=== PATIENT | female | born 2000 | race Caucasian/White ===

== ENCOUNTER 2020-03-22 07:14 | Inpatient (IN) | payer BC, OTHER ==
[~2020-03-22] VITALS: Ht 160 cm; Wt 65.8 kg
[~2020-03-22 07:14] MED LIST: CLIN150C14 PO; HYDR15SO6 PO
[2020-03-22] MEDS ORDERED: IV NORMAL SALINE 1000ML BAG 1,000 ML IV ONE ×2 (07:45)
[2020-03-22] MEDS ORDERED: ONDANSETRON PF 4 MG/2 ML VIAL. IVP ONE (07:45)
[2020-03-22 07:57] LABS: HEMATOCRIT 38.1 % (36.0-47.0); HEMOGLOBIN 13.1 g/dL (12.0-15.5); WHITE BLOOD COUNT 15.7 x10^3/uL (4.0-11.0)
[2020-03-22 08:04] LABS: BILIRUBIN,URINE SMALL (NEG); CLARITY,URINE CLEAR; COLOR,URINE AMBER; NITRITE,URINE NEGATIVE (NEG); PH,URINE 6.5 (<5.0-8.0); PROTEIN,URINE 30 mg/dL (NEG-TRACE)
[2020-03-22 08:11] LABS: CALCIUM 8.6 mg/dL (8.5-10.1); CREATININE 0.7 mg/dL (0.6-1.0); GFR 107.8; POTASSIUM 3.7 mmol/L (3.5-5.1)
[2020-03-22 08:13] LABS: BACTERIA,URINE FEW /HPF (0-FEW); RBC,URINE 0 /HPF (0-2); SQUAMOUS EPITHELIAL CELL,UR MANY /LPF
[2020-03-22 08:17] LABS: ALBUMIN 3.3 g/dL (3.4-5.0); ALBUMIN/GLOBULIN RATIO 0.9 (1.0-1.7); TOTAL BILIRUBIN 0.8 mg/dL (0.2-1.0); TOTAL PROTEIN 6.9 g/dL (6.4-8.2)
[2020-03-22 08:23] LABS: PREG TEST PT QUAL NEGATIVE (NEG)
[2020-03-22] MEDS ORDERED: FAMOTIDINE 20 MG/2 ML VIAL IVP ONE (08:30)
[2020-03-22] MEDS ORDERED: KETOROLAC 15 MG/ML VIAL. IVP ONE (08:30)
[2020-03-22] MEDS ORDERED: IOHEXOL 300 MG/ML 100ML VIAL. IV ONE (09:30)
--- NOTE | 2020-03-22 09:55 | RAD ---
CT abdomen and pelvis with contrast PQRS statement: CT scans at this facility use dose reduction including either automated exposure control, iterative reconstructions, and /or weight based radiation dosing via mA and kV modification when appropriate to reduce radiation dose to as low as reasonably achievable. Contrast: 75 mL Omnipaque 300 intravenous contrast. HISTORY: Abdominal pain, fever, nausea and vomiting. Abdomen findings: There are heterogeneous groundglass opacities at the lung bases. Kidneys, adrenal glands, pancreas, spleen, liver and gallbladder are unremarkable. Appendix is negative. No obstruction or inflammation the GI tract. No abdominal fluid or adenopathy. Right inner breast 3 x 2 cm ovoid density measuring 40 units in density image 1 extending outside the [id number] raising the possibility of a mass. Bones are unremarkable. Pelvis findings: Indistinct ovarian hypodensity most likely follicles. No pelvic fluid or adenopathy. Uterus, bladder, rectum and bones are unremarkable. IMPRESSION: 1. Heterogeneous pulmonary opacities of the lung bases, this raises the possibility of an inflammatory or infectious process including atypical viral infections. 2. 3 x 2 cm ovoid soft tissue density mass of the right inner breast extending outside the [id number]. Consider further assessment with outpatient right breast ultrasound. 3. Appendix is negative. Electronically signed by: Deepak Celaya MD (03/22/2020 9:52 AM) [id number]
--- NOTE | 2020-03-22 10:37 | PHYS DOC ---
Past Medical History Past Medical History: Asthma Additional Past Medical Histor: reports concussion july 2019 Past Surgical History: No Surgical History Smoking Status: Never Smoker Alcohol Use: None Drug Use: None Adult General Chief Complaint Chief Complaint: NAUSEA/VOMITING/DIARRHA HPI HPI Patient is a 19 year old female who presents with multiple medical complaints. Patient reports subjective fever, nausea vomiting and diarrhea for the past 5 days with left upper quadrant sharp abdominal pain worse with deep breathing. Patient reports body aches chills and sweats. Denies hematemesis coffee-ground emesis, melena. Reports feeling dizzy due to decreased oral intake. Last menstrual period was the past 30 days. No prior abdominal surgeries. No other acute symptoms or complaints. [] Review of Systems Review of Systems No known sick exposures. Review of systems as per HPI. All other review of symptoms are negative. All other systems were reviewed and found to be within normal limits, except as documented in this note. Current Medications Current Medications Current Medications Medications (Trade) Dose Ordered Sig/Michael Start Time Stop Time Status Last Admin Dose Admin Famotidine (Pepcid Vial) 20 mg 1X ONCE 03/22/20 08:30 03/22/20 08:33 DC 03/22/20 08:39 20 MG Iohexol (Omnipaque 300 Mg/ml) 75 ml 1X ONCE 03/22/20 09:30 03/22/20 09:31 DC 03/22/20 09:37 75 ML Ketorolac Tromethamine (Toradol 15mg Vial) 15 mg 1X ONCE 03/22/20 08:30 03/22/20 08:33 DC 03/22/20 08:36 15 MG Ondansetron HCl (Zofran) 8 mg 1X ONCE 03/22/20 07:45 03/22/20 07:50 DC 03/22/20 07:58 8 MG Sodium Chloride 1,000 ml @ 1,000 mls/hr 1X ONCE 03/22/20 07:45 03/22/20 08:44 DC 03/22/20 07:45 1,000 MLS/HR Allergies Allergies Allergies Coded Allergies Type Severity Reaction Last Updated Verified Sulfa (Sulfonamide Antibiotics) Allergy Intermediate Unknown 09/02/16 Yes Physical Exam Physical Exam Constitutional: Well developed, well nourished, no acute distress, non-toxic appearance. [] HENT: Normocephalic, atraumatic, bilateral external ears normal, oropharynx moist, no oral exudates, nose normal. [] Eyes: PERRLA, EOMI, conjunctiva normal, no discharge. [] Neck: Normal range of motion, no tendernes. [] Cardiovascular:Tachycardia [] Lungs & Thorax: Bilateral breath sounds clear to auscultation, coarse breath sounds in lung bases [] Abdomen: Bowel sounds normal, soft, Left upper quadrant pain tenderness. [] Skin: Warm, dry, no erythema, no rash. [] Back: No tenderness, no CVA tenderness. [] Extremities: No tenderness, no cyanosis, no clubbing, ROM intact, no edema. [] Neurologic: Alert and oriented X 3, normal motor function, normal sensory function, no focal deficits noted. [] Psychologic: Affect normal, judgement normal, mood normal. [] Current Patient Data Vital Signs Vital Signs Date Time Temp Pulse Resp B/P (MAP) Pulse Ox O2 Delivery O2 Flow Rate FiO2 03/22/20 09:39 112 132/61 (84) 03/22/20 09:21 98 Room Air 03/22/20 07:21 100.0 16 100.0 Lab Values Laboratory Tests Test 03/22/20 07:20 03/22/20 07:28 03/22/20 07:45 03/22/20 07:51 Urine Collection Type Unknown Urine Color Jeannette Urine Clarity Clear Urine pH 6.5 (<5.0-8.0) Urine Specific [place] 1.025 (1.000-1.030) Urine Protein 30 mg/dL (NEG-TRACE) Urine Glucose (UA) Negative mg/dL (NEG) Urine Ketones (Stick) >=80 mg/dL (NEG) Urine Blood Negative (NEG) Urine Nitrite Negative (NEG) Urine Bilirubin Small (NEG) Urine Urobilinogen Dipstick 2.0 mg/dL (0.2 mg/dL) Urine Leukocyte Esterase Small (NEG) Urine RBC 0 /HPF (0-2) Urine WBC 1-4 /HPF (0-4) Urine Squamous Epithelial Cells Many /LPF Urine Bacteria Few /HPF (0-FEW) Urine Mucus Marked /LPF POC Urine HCG, Qualitative Hcg negative (Negative) D-Dimer (Mona) 0.41 ug/mlFEU (0.00-0.50) Ferritin 180 ng/mL (8-252) Procalcitonin < 0.10 ng/mL (0.00-0.10) White Blood Count 15.7 x10^3/uL (4.0-11.0) H Hemoglobin 13.1 g/dL (12.0-15.5) Hematocrit 38.1 % (36.0-47.0) Platelet Count 379 x10^3/uL (140-400) Sodium Level 139 mmol/L (136-145) Potassium Level 3.7 mmol/L (3.5-5.1) Chloride Level 101 mmol/L (98-107) Carbon Dioxide Level 25 mmol/L (21-32) Anion Gap 13 (6-14) Blood Urea Nitrogen 10 mg/dL (7-20) Creatinine 0.7 mg/dL (0.6-1.0) Estimated GFR (Cockcroft-Gault) 107.8 BUN/Creatinine Ratio 14 (6-20) Glucose Level 98 mg/dL (70-99) Calcium Level 8.6 mg/dL (8.5-10.1) Total Bilirubin 0.8 mg/dL (0.2-1.0) Aspartate Amino Transferase (AST) 21 U/L (15-37) Alanine Aminotransferase (ALT) 21 U/L (14-59) Alkaline Phosphatase 92 U/L (46-116) Total Protein 6.9 g/dL (6.4-8.2) Albumin 3.3 g/dL (3.4-5.0) L Albumin/Globulin Ratio 0.9 (1.0-1.7) L Lipase 105 U/L (73-393) Serum Test, Qualitative Negative (NEG) Test 03/22/20 09:09 03/22/20 09:27 C-Reactive Protein, Quantitative 184.9 mg/L (0-3.3) H Lactic Acid Level 0.8 mmol/L (0.4-2.0) Laboratory Tests 03/22/20 07:51 Laboratory Tests 03/22/20 07:51 EKG EKG [] Radiology/Procedures Radiology/Procedures [CXR: Left lower lobe infiltrate. CT abdomen/pelvis: Groundglass opacities in lower lung bases. Right breast cystic mass, normal appendix per radiology report.] Course & Med Decision Making Course & Med Decision Making Pertinent Labs and Imaging studies reviewed. (See chart for details) [Patient with persistent nausea vomiting with poor oral intake. Remains tachycardic and tachypneic despite IV fluids and treatment in the emergency. As such, patient is a poor candidate for outpatient treatment. Will admit to the hospital service. COVID screening pending at time of dictation] Dragon Disclaimer Dragon Disclaimer This electronic medical record was generated, in whole or in part, using a voice recognition dictation system. Departure Departure Impression: Primary Impression: Fever Additional Impressions: Intractable vomiting with nausea Pneumonia Disposition: HOME, SELF-CARE Condition: STABLE Referrals: NO PCP (PCP) Problem Qualifiers ELVIA VARGAS DO March 22, 2020 10:37
--- NOTE | 2020-03-22 10:42 | RAD ---
PORTABLE CHEST 1V Clinical indications: Reason: Shortness of air, VOMITING X 5 DAYS / COMPARISON: None available. Findings: There is bilateral lower lung zone haziness. No pleural effusion or pneumothorax is evident. The heart size, pulmonary vasculature, mediastinum and both karon are unremarkable. Impression: Bilateral lower lung zone haziness. This may be secondary to the overlying brassiere. Recommend repeat chest x-ray without the brassiere. Electronically signed by: Sky Norman MD (03/22/2020 10:39 AM) [id number]
[2020-03-22] MEDS ORDERED: AZITHRMYCN 500MG IVPB FOR OMNI 250 ML IV ONE (11:45)
[2020-03-22] MEDS ORDERED: cefTRIAXone IV Push 1 GM VIAL. IVP ONE (11:45)
[2020-03-22 12:30] VITALS: BP 114/73
[2020-03-22] MEDS: ONDANSETRON PF 4 MG/2 ML VIAL. IV PRN ×2 (12:54→19:29)
[2020-03-22] MEDS: IV NORMAL SALINE 1000ML BAG 1,000 ML IV SCH ×2 (12:56→19:43)
--- NOTE | 2020-03-22 13:18 | HP ---
ADMIT DATE: 03/22/2020 CHIEF COMPLAINT: Shortness of breath, nausea, vomiting, diarrhea. HISTORY OF PRESENT ILLNESS: The patient is a pleasant 19-year-old female who is normally healthy. 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 Now, she presents with shortness of breath, nausea, vomiting, and diarrhea. Clinically, she appears to have possible COVID-19. She does have an elevated white count of 16,000. Her chest x-ray showing some ground glass appearance. She is requiring some oxygen. I discussed the case with ER physician. We are going to admit the patient and rule out COVID-19. She will be given IV antibiotics. We are going to consult Pulmonary Medicine. PAST MEDICAL HISTORY: Asthma. ALLERGIES: SULFA. FAMILY HISTORY: Coronary artery disease. SOCIAL HISTORY: She does not drink, smoke or take drugs. MEDICATIONS: Reviewed, please refer to the MRAD. REVIEW OF SYSTEMS: GENERAL: No history of weight change, weakness or fevers. SKIN: No bruising, hair changes or rashes. EYES: No blurred, double or loss of vision. NOSE AND THROAT: No history of nosebleeds, hoarseness or sore throat. HEART: No history of palpitations, chest pain or shortness of breath on exertion. LUNGS: She complains shortness of breath. GASTROINTESTINAL: She complains of nausea, vomiting, and diarrhea. GENITOURINARY: No history of frequency, urgency, hesitancy or nocturia. NEUROLOGIC: Denies history of numbness, tingling, tremor or weakness. PSYCHIATRIC: No history of panic, anxiety or depression. ENDOCRINE: No history of heat or cold intolerance, polyuria or polydipsia. EXTREMITIES: Denies muscle weakness, joint pain, pain on walking or stiffness. PHYSICAL EXAMINATION: VITALS: Within normal limits and are stable. GENERAL: No apparent distress. Alert and oriented. HEENT: Normal cephalic atraumatic, external auditory canals are patent EYES: Extraocular muscles are intact, pupils are equally round and reactive to light and accommodation MUSCULOSKELETAL: Well developed, well nourished, good range of motion ENDOCRINE: No thyromegaly was palpated LYMPHATICS: No cervical chain or axillary nodes were noted HEMATOPOIETIC: No bruising NECK: Supple, no JVD, no thyromegaly was noted. LUNGS: She has bilateral crackles. HEART: RRR, S1, S2 present. Peripheral pulses intact, no obvious murmurs were noted. ABDOMEN: Soft, nontender. Positive bowel sounds no organomegaly, normal bowel sounds. EXTREMITIES: Without any cyanosis, clubbing, or edema. Pedal pulses intact, Homans sign is negative. NEUROLOGIC: Normal speech, normal tone. A & O x3, moves all extremities, no obvious focal deficits. PSYCHIATRIC: Normal affect, normal mood. Stable. SKIN: No ulcerations or rashes, good skin turgor, no jaundice. VASCULAR: Good capillary refill, neurovascular bundle appears to be intact. LABORATORY DATA: Her white count is 16. Chest x-ray shows ground glass opacities. ASSESSMENT AND PLAN: Probable COVID-19 syndrome. The patient will be admitted. We will start IV antibiotics, breathing treatments, oxygen. Consult Pulmonary. Home meds. Deep venous thrombosis prophylaxis. Full code. Prognosis guarded. DOROTHY COLLIER DO DR: KIMBERLYN/roberto JOB#: [id number] / [id number]
[2020-03-22] MEDS: KETOROLAC 30 MG/ML VIAL. IVP PRN ×2 (14:14→23:28)
[2020-03-22] MEDS: PROCHLORPERAZINE 10 MG/2 ML VIAL. IM PRN ×2 (14:14→23:28)
[2020-03-22 15:00] VITALS: BP 117/63
[2020-03-22] MEDS: ALPRAZolam 0.25 MG TABLET PO PRN (18:01)
[2020-03-22 19:30] VITALS: BP 110/85
--- NOTE | 2020-03-22 21:07 | CONS ---
DATE OF CONSULTATION: 03/22/2020 PULMONARY CONSULTATION ATTENDING PHYSICIAN: Dr. Carpenter. REASON FOR CONSULTATION: Abnormal CT abdomen and lower chest and possible COVID-19. HISTORY OF PRESENT ILLNESS: The patient is a 19-year-old female who has history of asthma as a child, never outgrew it. She says she usually takes albuterol whenever there is a flare up and it usually flares up maybe 3-4 times a year. She is not on any steroid inhaler. The patient states that she came into the hospital early this morning after she was having vomiting all day yesterday. She denies any diarrhea. She had no cough. She had a low-grade fever, but had no shortness of breath. The patient says that she ate blueberries yesterday, they did not look good. The patient denies eating any other food outside home besides that. Her chest x-ray revealed a faint hazy infiltrate in the left base. She had a CT abdomen and pelvis, which was reviewed by me. There were some ground-glass opacities at the lower section of the lung. There was no mass is seen in the lungs at the lower part. The radiologist reported a 3 x 2 cm ovoid soft tissue density in her right inner breast and recommended an ultrasound. I have been asked to see her for further evaluation. She received 2 liters of IV fluids and is currently receiving IV maintenance fluid. She says her vomiting has not reoccurred since she has been hospitalized. PAST MEDICAL HISTORY: History of asthma. PAST SURGICAL HISTORY: None. ALLERGIES: SULFA. FAMILY HISTORY: Coronary artery disease. SOCIAL HISTORY: Does not drink or smoke cigarettes. MEDICATIONS: Reviewed, which were given in the ER. REVIEW OF SYSTEMS: Twelve-point system obtained, pertinent positives discussed in my history of present illness, otherwise noncontributory. PHYSICAL EXAMINATION: VITAL SIGNS: On examination which was done via telemedicine, her T-max of 100 degrees Fahrenheit, pulse is in the one-teens, blood pressure stable, and pulse ox 95% on room air. GENERAL: By visual exam, she does not appear to be in any obvious respiratory distress. Nurses report some faint crackles at the base. No skin rash. LABORATORY DATA: Reviewed. White cell count 15.7, hemoglobin 13.1, and platelets 379. Her albumin 3.3. C-reactive protein 184, which was high. Serum test was negative. Sodium 139, potassium 3.7 and BUN and creatinine 10 and 0.7. Ferritin 180. D-dimer 0.41. LFTs were normal. IMPRESSION: 1. The patient with nausea and vomiting after eating blueberries with a low-grade fever and some ground-glass opacities in the lower section of the lungs. She has no exposures to COVID-19. She has been at home as she has been furloughed from work. At this point, clinical suspicion for COVID-19 is low. This could be food poisoning versus viral gastroenteritis. 2. Abnormal CT abdomen with lower sections of the chest with ground-glass opacities, likely inflammation. 3. Abnormal right breast ovoid soft tissue density mass. This will recommend PCP to follow up on that. Radiology recommended ultrasound. 4. History of asthma as a child, never outgrew it. Usually uses p.r.n. albuterol during flareups on an average 3-4 times a year. Clinically stable. RECOMMENDATIONS: 1. I have discussed with the patient that at this time I would hydrate her and make sure remains hemodynamically stable. We will monitor her fever. 2. COVID-19 testing has been obtained and should be back in the next 24 hours and if it is negative, she could be discharged home. 3. Would need a f/u US of right breast as recommended by radiologist. Will leave up to Dr Carpenter for any w/u. 4. D-Dimer normal. No need for further w/u 5. d/w RN and patients mother. SHANITA YI MD DR: MIRANDA/roberto JOB#: [id number] / [id number] [place]
[2020-03-22 23:30] VITALS: BP 126/76
[2020-03-23] MEDS: ONDANSETRON PF 4 MG/2 ML VIAL. IV PRN (02:12)
[2020-03-23 03:30] VITALS: BP 130/81
[2020-03-23] MEDS: IV NORMAL SALINE 1000ML BAG 1,000 ML IV SCH (03:44)
[2020-03-23 05:17] LABS: BASO % 0 % (0-3); EOS # 0.2 x10^3/uL (0.0-0.7); EOS % 2 % (0-3); HEMATOCRIT 35.5 % (36.0-47.0); LYMPH # 0.8 x10^3/uL (1.0-4.8); LYMPH % 7 % (24-48); MEAN CORPUSCULAR HEMOGLOBIN 29 pg (25-35); MEAN CORPUSCULAR HGB CONC 34 g/dL (31-37); MEAN CORPUSCULAR VOLUME 85 fL (79-100); MONO # 0.3 x10^3/uL (0.0-1.1); MONO % 3 % (0-9); NEUT % 88 % (31-73); PLATELET COUNT 328 x10^3/uL (140-400); RED BLOOD COUNT 4.19 x10^6/uL (3.50-5.40); RED CELL DISTRIBUTION WIDTH 12.4 % (11.5-14.5); WHITE BLOOD COUNT 11.3 x10^3/uL (4.0-11.0)
[2020-03-23] MEDS ORDERED: ONDANSETRON PF 4 MG/2 ML VIAL. IV PRN ×2 (06:00→08:15)
[2020-03-23 06:09] LABS: CALCIUM 8.2 mg/dL (8.5-10.1); CREATININE 0.6 mg/dL (0.6-1.0); GFR 128.8; POTASSIUM 3.3 mmol/L (3.5-5.1)
[2020-03-23 06:16] LABS: % BANDS 9 % (0-9); % EOS 4 % (0-5); % LYMPHS 12 % (24-48); % MONOS 1 % (0-10); % SEGS 74 % (35-66); PLT ESTIMATE ADEQUATE (ADEQUATE)
--- NOTE | 2020-03-23 06:59 | NUR ---
IP:PT is COVID negative.
[2020-03-23 07:00] VITALS: BP 128/90
[2020-03-23] MEDS ORDERED: PROCHLORPERAZINE 10 MG/2 ML VIAL. ONE (08:13)
[2020-03-23] MEDS ORDERED: PROCHLORPERAZINE 10 MG/2 ML VIAL. IVP PRN (08:15)
[2020-03-23] MEDS: ALPRAZolam 0.25 MG TABLET PO PRN (08:56)
[2020-03-23] MEDS ORDERED: cefTRIAXone IV Push 2 GM VIAL. IVP SCH (09:00)
--- NOTE | 2020-03-23 09:11 | PDOC ---
[facility] PROGRESS NOTE Chief Complaint Chief Complaint Possible COVID-19 Nausea vomiting Asthma History of Present Illness History of Present Illness 03/23/2020 Patient seen and examined She is still having a lot of nausea and vomiting COVID test just came back a few minutes ago it is negative Vitals/I&O Vitals/I&O: Vital Signs Date Time Temp Pulse Resp B/P (MAP) Pulse Ox O2 Delivery O2 Flow Rate FiO2 03/23/20 07:00 100.5 130 22 128/90 (103) 95 Room Air 100.5 I & O 03/22/20 03/22/20 03/23/20 15:00 23:00 07:00 Intake Total 2000 ml 469.6 ml 2375 ml Balance 2000 ml 469.6 ml 2375 ml Physical Exam General: Alert, Oriented X3 Heart: Regular rate, Normal S1 Lungs: Clear Abdomen: Normal bowel sounds Extremities: No clubbing, No cyanosis Skin: No rashes, No breakdown Labs Labs: Laboratory Tests Test 03/22/20 09:27 03/22/20 23:04 03/23/20 04:30 Lactic Acid Level 0.8 mmol/L (0.4-2.0) Coronavirus (COVID-19)(PCR) Not detected (NOT DETECT.) White Blood Count 11.3 x10^3/uL (4.0-11.0) Red Blood Count 4.19 x10^6/uL (3.50-5.40) Hemoglobin 12.0 g/dL (12.0-15.5) Hematocrit 35.5 % (36.0-47.0) Mean Corpuscular Volume 85 fL (79-100) Mean Corpuscular Hemoglobin 29 pg (25-35) Mean Corpuscular Hemoglobin Concent 34 g/dL (31-37) Red Cell Distribution Width 12.4 % (11.5-14.5) Platelet Count 328 x10^3/uL (140-400) Neutrophils (%) (Auto) 88 % (31-73) Lymphocytes (%) (Auto) 7 % (24-48) Monocytes (%) (Auto) 3 % (0-9) Eosinophils (%) (Auto) 2 % (0-3) Basophils (%) (Auto) 0 % (0-3) Neutrophils # (Auto) 10.0 x10^3/uL (1.8-7.7) Lymphocytes # (Auto) 0.8 x10^3/uL (1.0-4.8) Monocytes # (Auto) 0.3 x10^3/uL (0.0-1.1) Eosinophils # (Auto) 0.2 x10^3/uL (0.0-0.7) Basophils # (Auto) 0.0 x10^3/uL (0.0-0.2) Segmented Neutrophils % 74 % (35-66) Band Neutrophils % 9 % (0-9) Lymphocytes % 12 % (24-48) Monocytes % 1 % (0-10) Eosinophils % 4 % (0-5) Platelet Estimate Adequate (ADEQUATE) Sodium Level 138 mmol/L (136-145) Potassium Level 3.3 mmol/L (3.5-5.1) Chloride Level 102 mmol/L (98-107) Carbon Dioxide Level 22 mmol/L (21-32) Anion Gap 14 (6-14) Blood Urea Nitrogen 3 mg/dL (7-20) Creatinine 0.6 mg/dL (0.6-1.0) Estimated GFR (Cockcroft-Gault) 128.8 Glucose Level 88 mg/dL (70-99) Calcium Level 8.2 mg/dL (8.5-10.1) Assessment and Plan Assessmemt and Plan Problems Medical Problems: (1) Fever Status: Acute (2) Intractable vomiting with nausea Status: Acute (3) Pneumonia Status Probable resolving gastroenteritis COVID-19 is now ruled out Plan Transfer out of ICU Appreciate pulmonary input Continue Zofran and Compazine IV fluids If she can tolerate a diet later this evening we might be able to discharge? Comment Review of Relevant I have reviewed the following items brianna (where applicable) has been applied. Medications: Current Medications Medications (Trade) Dose Ordered Sig/Michael Route PRN Reason Start Time Stop Time Status Last Admin Dose Admin Iohexol (Omnipaque 300 Mg/ml) 75 ml 1X ONCE IV 03/22/20 09:30 03/22/20 09:31 DC 03/22/20 09:37 Ceftriaxone Sodium (Rocephin) 1 gm 1X ONCE IVP 03/22/20 11:45 03/22/20 11:46 DC 03/22/20 11:54 Azithromycin 250 ml @ 250 mls/hr 1X ONCE IV 03/22/20 11:45 03/22/20 12:44 DC 03/22/20 11:45 Ondansetron HCl (Zofran) 4 mg PRN Q8HRS PRN IV NAUSEA/VOMITING 03/22/20 11:45 03/23/20 06:02 DC 03/23/20 02:12 Sodium Chloride 1,000 ml @ 125 mls/hr Q8H IV 03/22/20 11:43 03/23/20 11:42 03/23/20 03:44 Ketorolac Tromethamine (Toradol 30mg Vial) 30 mg PRN Q6HRS PRN IVP MODERATE PAIN 03/22/20 14:00 03/27/20 13:59 03/22/20 23:28 Prochlorperazine Edisylate (Compazine) 10 mg PRN Q8HRS PRN IM NAUSEA/VOMITING 03/22/20 14:00 03/23/20 08:10 DC 03/22/20 23:28 Alprazolam (Xanax) 0.25 mg PRN Q8HRS PRN PO ANXIETY / AGITATION 03/22/20 17:45 03/23/20 08:56 Ondansetron HCl (Zofran) 4 mg PRN Q6HRS PRN IV NAUSEA/VOMITING 03/23/20 06:00 03/23/20 08:10 DC 03/23/20 06:34 Ceftriaxone Sodium (Rocephin) 2 gm Q24H IVP 03/23/20 09:00 03/23/20 08:56 Prochlorperazine Edisylate (Compazine) 10 mg PRN Q6HRS PRN IVP NAUSEA/VOMITING 03/23/20 08:15 03/23/20 08:57 DOROTHY COLLIER III DO March 23, 2020 09:11
[2020-03-23] MEDS ORDERED: ACETAMINOPHEN 325 MG TABLET. PO PRN (09:15)
--- NOTE | 2020-03-23 09:18 | PDOC ---
Infectious Disease Note Vital Signs: Vital Signs Vital Signs Date Time Temp Pulse Resp B/P (MAP) Pulse Ox O2 Delivery O2 Flow Rate FiO2 03/23/20 07:00 100.5 130 22 128/90 (103) 95 Room Air 100.5 Medications: Inpatient Meds: Current Medications Medications (Trade) Dose Ordered Sig/Michael Start Time Stop Time Status Last Admin Dose Admin Acetaminophen (Tylenol) 650 mg PRN Q6HRS PRN 03/23/20 09:15 Alprazolam (Xanax) 0.25 mg PRN Q8HRS PRN 03/22/20 17:45 03/23/20 08:56 0.25 MG Azithromycin 250 ml @ 250 mls/hr 1X ONCE 03/22/20 11:45 03/22/20 12:44 DC 03/22/20 11:45 250 MLS/HR Ceftriaxone Sodium (Rocephin) 2 gm Q24H 03/23/20 09:00 03/23/20 08:56 2 GM Famotidine (Pepcid Vial) 20 mg 1X ONCE 03/22/20 08:30 03/22/20 08:33 DC 03/22/20 08:39 20 MG Iohexol (Omnipaque 300 Mg/ml) 75 ml 1X ONCE 03/22/20 09:30 03/22/20 09:31 DC 03/22/20 09:37 75 ML Ketorolac Tromethamine (Toradol 15mg Vial) 15 mg 1X ONCE 03/22/20 08:30 03/22/20 08:33 DC 03/22/20 08:36 15 MG Ketorolac Tromethamine (Toradol 30mg Vial) 30 mg PRN Q6HRS PRN 03/22/20 14:00 03/27/20 13:59 03/22/20 23:28 30 MG Levofloxacin (Levaquin) 750 mg 1X ONCE 03/22/20 11:45 03/22/20 11:40 DC Ondansetron HCl (Zofran) 8 mg PRN Q6HRS PRN 03/23/20 08:15 Prochlorperazine Edisylate (Compazine) 10 mg STK-MED ONCE 03/23/20 08:13 03/23/20 08:14 DC Sodium Chloride 1,000 ml @ 125 mls/hr Q8H 03/22/20 11:43 03/23/20 11:42 03/23/20 03:44 125 MLS/HR Labs: Lab Laboratory Tests Test 03/22/20 09:27 03/22/20 23:04 03/23/20 04:30 Lactic Acid Level 0.8 mmol/L (0.4-2.0) Coronavirus (COVID-19)(PCR) Not detected (NOT DETECT.) White Blood Count 11.3 x10^3/uL (4.0-11.0) Red Blood Count 4.19 x10^6/uL (3.50-5.40) Hemoglobin 12.0 g/dL (12.0-15.5) Hematocrit 35.5 % (36.0-47.0) Mean Corpuscular Volume 85 fL (79-100) Mean Corpuscular Hemoglobin 29 pg (25-35) Mean Corpuscular Hemoglobin Concent 34 g/dL (31-37) Red Cell Distribution Width 12.4 % (11.5-14.5) Platelet Count 328 x10^3/uL (140-400) Neutrophils (%) (Auto) 88 % (31-73) Lymphocytes (%) (Auto) 7 % (24-48) Monocytes (%) (Auto) 3 % (0-9) Eosinophils (%) (Auto) 2 % (0-3) Basophils (%) (Auto) 0 % (0-3) Neutrophils # (Auto) 10.0 x10^3/uL (1.8-7.7) Lymphocytes # (Auto) 0.8 x10^3/uL (1.0-4.8) Monocytes # (Auto) 0.3 x10^3/uL (0.0-1.1) Eosinophils # (Auto) 0.2 x10^3/uL (0.0-0.7) Basophils # (Auto) 0.0 x10^3/uL (0.0-0.2) Segmented Neutrophils % 74 % (35-66) Band Neutrophils % 9 % (0-9) Lymphocytes % 12 % (24-48) Monocytes % 1 % (0-10) Eosinophils % 4 % (0-5) Platelet Estimate Adequate (ADEQUATE) Sodium Level 138 mmol/L (136-145) Potassium Level 3.3 mmol/L (3.5-5.1) Chloride Level 102 mmol/L (98-107) Carbon Dioxide Level 22 mmol/L (21-32) Anion Gap 14 (6-14) Blood Urea Nitrogen 3 mg/dL (7-20) Creatinine 0.6 mg/dL (0.6-1.0) Estimated GFR (Cockcroft-Gault) 128.8 Glucose Level 88 mg/dL (70-99) Calcium Level 8.2 mg/dL (8.5-10.1) Objective: Assessment: Patient seen and examined Impression Fever Leukocytosis Abdominal pain ,nausea and vomiting improving Diarrhea resolved Plan: Plan of Care Restart ceftriaxone Follow-up labs and cultures Maintain aspiration precaution Continue supportive care Thank you [id number] JACEK HUDSON MD March 23, 2020 09:18
[2020-03-23] MEDS ORDERED: POTASSIUM CHLORIDE 20MEQ 100 ML IV SCH (10:00)
[2020-03-23 11:00] VITALS: BP 111/72
[2020-03-23] MEDS ORDERED: POTASSIUM CHLORIDE 20 MEQ TABLET.ER. PO ONE ×2 (11:00→12:15)
--- NOTE | 2020-03-23 11:17 | CONS ---
DATE OF CONSULTATION: 03/23/2020 REFERRING PHYSICIAN: Carlito Carpenter MD REASON FOR CONSULTATION: Antibiotic management. HISTORY OF PRESENT ILLNESS: A 19-year-old female presented to ER with complaints of fever, nausea, vomiting, diarrhea, abdominal pain, chest pain with deep breathing. She had body aches, sweats. She denied any blood in stool. No sick contact. No headache. She was febrile at 100 degrees with tachycardia. Blood pressure was normal. Oxygen saturation was 98% on room air. UA showed ketones, wbc 1-4. D-dimer was 0.41. Ferritin of 180. Procalcitonin of less than 1.0. WBC of 15.7 with creatinine of 0.7, lipase of 105. C-reactive protein 184. Lactate of 0.8. White count was 15.7 thousand. Chest x-ray showed bilateral lower lobe haziness. CT showed ground-glass opacities in the lower lung base, right breast cystic mass, normal appendix. The patient received a dose of Levaquin, Rocephin and azithromycin. She also got IV fluid bolus. ID consult has been requested for antibiotic management. This morning, the patient feels much better. She wants to go home. She still has some chest pain when she takes a deep breath. Has some nausea. No vomiting since yesterday. No diarrhea. Abdominal pain has resolved. No back pain. No headache. No sore throat, rash, urinary problems. PAST MEDICAL HISTORY: Asthma. ALLERGIES: SULFA causing hives. FAMILY HISTORY: As per HPI. SOCIAL HISTORY: Denies smoking, ETOH, or illicit drug use. Sexually active. Goes to school. CURRENT MEDICATIONS: No antibiotics at this time. Other medications reviewed in DEC. REVIEW OF SYSTEMS: Negative except for above in the HPI. PHYSICAL EXAMINATION: VITAL SIGNS: Temperature 100.5, pulse 130, respiratory rate 22, blood pressure 128/90, oxygen saturation 95% on room air. GENERAL: Alert, oriented, slightly anxious appearing, pleasant female, in no acute distress, on room air. HEENT: Normocephalic, atraumatic. Anicteric. NECK: Supple. No JVD. LUNGS: Clear bilaterally. No wheezing. HEART: S1, S2. No gallops or murmurs. ABDOMEN: Soft, nontender, nondistended. No rebound or guarding. EXTREMITIES: No edema, no cyanosis, no clubbing. DERMATOLOGIC: Warm, dry. No generalized rash. Multiple tattoos. No open wounds. NEUROLOGIC: Alert and oriented x 3. Grossly nonfocal. BACK: Reveals normal curvature. No CVA tenderness. PSYCHIATRIC: Cooperative. Appropriate mood and affect. Slightly anxious. LABORATORY DATA: WBC 11.3, hemoglobin 12.0, hematocrit 35.5, platelets 328, neutrophils 88%, lymphocyte 0.8, segment 74. COVID negative. Sodium 138, potassium 3.3, chloride 102, bicarbonate 22, BUN 3, creatinine 0.6, glucose 88. C-reactive protein 184.9. Albumin 3.3. Lipase 105. Serum qualitative test negative. Urine test negative. UA shows 1-4 wbc's. COVID not detected. DIAGNOSTIC DATA: CT abdomen and pelvis, heterogeneous pulmonary opacities of the lung base. This raises the possibility of inflammatory or infectious process including atypical viral infection. A 3 x 2 cm ovoid soft tissue density mass of the right inner breast extending outside the field of view. Appendix is negative. Chest x-ray shows bilateral lower zone haziness. IMPRESSION: 1. Fever. 2. Nausea, vomiting, diarrhea. 3. Pulmonary infiltrates with ground-glass opacities. COVID negative. 4. Abnormal right breast ovoid soft tissue density, likely cyst. 5. History of asthma as a child. 6. History of allergies to SULFA. 7. Leukocytosis. 8. Diarrhea, resolved. RECOMMENDATIONS: 1. Restart empiric ceftriaxone. 2. Follow up labs and cultures. 3. Continue supportive care. 4. Maintain aspiration precautions. Discussed with nursing staff. Thank you for allowing me to participate in this patient's care. If you have any questions, do not hesitate to contact me. JACEK HUDSON MD DR: ANDREI/roberto JOB#: [id number] / [id number]
--- NOTE | 2020-03-23 11:38 | PDOC ---
PULMONARY PROGRESS NOTES Subjective low grade fever wants to go home Vitals Vital Signs Date Time Temp Pulse Resp B/P (MAP) Pulse Ox O2 Delivery O2 Flow Rate FiO2 03/23/20 11:00 111/72 (85) Room Air 03/23/20 07:00 100.5 130 22 95 100.5 General: Alert, No acute distress Lungs: Clear Abdomen: Soft Neuro Exam: Alert Extremities: No Edema Labs Laboratory Tests Test 03/22/20 07:20 03/22/20 07:28 03/22/20 07:45 03/22/20 07:51 Urine Collection Type Unknown Urine Color Jeannette Urine Clarity Clear Urine pH 6.5 (<5.0-8.0) Urine Specific [place] 1.025 (1.000-1.030) Urine Protein 30 mg/dL (NEG-TRACE) Urine Glucose (UA) Negative mg/dL (NEG) Urine Ketones (Stick) >=80 mg/dL (NEG) Urine Blood Negative (NEG) Urine Nitrite Negative (NEG) Urine Bilirubin Small (NEG) Urine Urobilinogen Dipstick 2.0 mg/dL (0.2 mg/dL) Urine Leukocyte Esterase Small (NEG) Urine RBC 0 /HPF (0-2) Urine WBC 1-4 /HPF (0-4) Urine Squamous Epithelial Cells Many /LPF Urine Bacteria Few /HPF (0-FEW) Urine Mucus Marked /LPF Bedside Urine HCG, Qualitative Hcg negative (Negative) D-Dimer (Mona) 0.41 ug/mlFEU (0.00-0.50) Ferritin 180 ng/mL (8-252) Procalcitonin < 0.10 ng/mL (0.00-0.10) White Blood Count 15.7 x10^3/uL (4.0-11.0) Hemoglobin 13.1 g/dL (12.0-15.5) Hematocrit 38.1 % (36.0-47.0) Platelet Count 379 x10^3/uL (140-400) Sodium Level 139 mmol/L (136-145) Potassium Level 3.7 mmol/L (3.5-5.1) Chloride Level 101 mmol/L (98-107) Carbon Dioxide Level 25 mmol/L (21-32) Anion Gap 13 (6-14) Blood Urea Nitrogen 10 mg/dL (7-20) Creatinine 0.7 mg/dL (0.6-1.0) Estimated GFR (Cockcroft-Gault) 107.8 BUN/Creatinine Ratio 14 (6-20) Glucose Level 98 mg/dL (70-99) Calcium Level 8.6 mg/dL (8.5-10.1) Total Bilirubin 0.8 mg/dL (0.2-1.0) Aspartate Amino Transf (AST/SGOT) 21 U/L (15-37) Alanine Aminotransferase (ALT/SGPT) 21 U/L (14-59) Alkaline Phosphatase 92 U/L (46-116) Total Protein 6.9 g/dL (6.4-8.2) Albumin 3.3 g/dL (3.4-5.0) Albumin/Globulin Ratio 0.9 (1.0-1.7) Lipase 105 U/L (73-393) Serum Test, Qualitative Negative (NEG) Test 03/22/20 09:09 03/22/20 09:27 03/22/20 23:04 03/23/20 04:30 C-Reactive Protein, Quantitative 184.9 mg/L (0-3.3) Lactic Acid Level 0.8 mmol/L (0.4-2.0) Coronavirus (COVID-19)(PCR) Not detected (NOT DETECT.) White Blood Count 11.3 x10^3/uL (4.0-11.0) Red Blood Count 4.19 x10^6/uL (3.50-5.40) Hemoglobin 12.0 g/dL (12.0-15.5) Hematocrit 35.5 % (36.0-47.0) Mean Corpuscular Volume 85 fL (79-100) Mean Corpuscular Hemoglobin 29 pg (25-35) Mean Corpuscular Hemoglobin Concent 34 g/dL (31-37) Red Cell Distribution Width 12.4 % (11.5-14.5) Platelet Count 328 x10^3/uL (140-400) Neutrophils (%) (Auto) 88 % (31-73) Lymphocytes (%) (Auto) 7 % (24-48) Monocytes (%) (Auto) 3 % (0-9) Eosinophils (%) (Auto) 2 % (0-3) Basophils (%) (Auto) 0 % (0-3) Neutrophils # (Auto) 10.0 x10^3/uL (1.8-7.7) Lymphocytes # (Auto) 0.8 x10^3/uL (1.0-4.8) Monocytes # (Auto) 0.3 x10^3/uL (0.0-1.1) Eosinophils # (Auto) 0.2 x10^3/uL (0.0-0.7) Basophils # (Auto) 0.0 x10^3/uL (0.0-0.2) Segmented Neutrophils % 74 % (35-66) Band Neutrophils % 9 % (0-9) Lymphocytes % 12 % (24-48) Monocytes % 1 % (0-10) Eosinophils % 4 % (0-5) Platelet Estimate Adequate (ADEQUATE) Sodium Level 138 mmol/L (136-145) Potassium Level 3.3 mmol/L (3.5-5.1) Chloride Level 102 mmol/L (98-107) Carbon Dioxide Level 22 mmol/L (21-32) Anion Gap 14 (6-14) Blood Urea Nitrogen 3 mg/dL (7-20) Creatinine 0.6 mg/dL (0.6-1.0) Estimated GFR (Cockcroft-Gault) 128.8 Glucose Level 88 mg/dL (70-99) Calcium Level 8.2 mg/dL (8.5-10.1) Laboratory Tests Test 03/22/20 23:04 03/23/20 04:30 Coronavirus (COVID-19)(PCR) Not detected (NOT DETECT.) White Blood Count 11.3 x10^3/uL (4.0-11.0) Red Blood Count 4.19 x10^6/uL (3.50-5.40) Hemoglobin 12.0 g/dL (12.0-15.5) Hematocrit 35.5 % (36.0-47.0) Mean Corpuscular Volume 85 fL (79-100) Mean Corpuscular Hemoglobin 29 pg (25-35) Mean Corpuscular Hemoglobin Concent 34 g/dL (31-37) Red Cell Distribution Width 12.4 % (11.5-14.5) Platelet Count 328 x10^3/uL (140-400) Neutrophils (%) (Auto) 88 % (31-73) Lymphocytes (%) (Auto) 7 % (24-48) Monocytes (%) (Auto) 3 % (0-9) Eosinophils (%) (Auto) 2 % (0-3) Basophils (%) (Auto) 0 % (0-3) Neutrophils # (Auto) 10.0 x10^3/uL (1.8-7.7) Lymphocytes # (Auto) 0.8 x10^3/uL (1.0-4.8) Monocytes # (Auto) 0.3 x10^3/uL (0.0-1.1) Eosinophils # (Auto) 0.2 x10^3/uL (0.0-0.7) Basophils # (Auto) 0.0 x10^3/uL (0.0-0.2) Segmented Neutrophils % 74 % (35-66) Band Neutrophils % 9 % (0-9) Lymphocytes % 12 % (24-48) Monocytes % 1 % (0-10) Eosinophils % 4 % (0-5) Platelet Estimate Adequate (ADEQUATE) Sodium Level 138 mmol/L (136-145) Potassium Level 3.3 mmol/L (3.5-5.1) Chloride Level 102 mmol/L (98-107) Carbon Dioxide Level 22 mmol/L (21-32) Anion Gap 14 (6-14) Blood Urea Nitrogen 3 mg/dL (7-20) Creatinine 0.6 mg/dL (0.6-1.0) Estimated GFR (Cockcroft-Gault) 128.8 Glucose Level 88 mg/dL (70-99) Calcium Level 8.2 mg/dL (8.5-10.1) Medications Active Scripts Medications Dose Route/Sig Max Daily Dose Days Date Category Clindamycin Hcl 150 Mg Capsule 3 Cap PO TID 09/02/16 Rx Hydrocodone-Apap 7.5-325/15 Soln (Hydrocodone Bit/Acetaminophen) 15 Ml Solution 15 Ml PO PRN Q6HRS PRN 09/02/16 Rx Impression . 1. The patient with nausea and vomiting after eating blueberries with a low-grade fever and some ground-glass opacities in the lower section of the lungs. She has no exposures to COVID-19. She has been at home as she has been furloughed from work. COVID-19 Neg This could be food poisoning versus viral gastroenteritis./ viral pneumonitis 2. Abnormal CT abdomen with lower sections of the chest with ground-glass opacities, likely inflammation. 3. Abnormal right breast ovoid soft tissue density mass. This will recommend PCP to follow up on that. Radiology recommended ultrasound. 4. History of asthma as a child, never outgrew it. Usually uses p.r.n. albuterol during flareups on an average 3-4 times a year. Clinically stable. Plan . 1. Pt desperate to leave hospital. sh eunderstands she has not complete resolution of fever 2. COVID-19 neg 3. Would need a f/u US of right breast as recommended by radiologist. Pt / mother informed about OP US of right breast thru PCP 4. D-Dimer normal. No need for further w/u 5. d/w RN and patients mother.03/22. ok with dc if ok by SHANITA PEDRAZA MD March 23, 2020 11:38
--- NOTE | 2020-03-23 13:25 | NUR ---
Patient and mom Crystal given discharge instructions as well as education on finding pcp and getting breast ultrasound done outpt. Patients mom stated that she would take care of it soon adn it was priority. Pt never had pcp due to usually only going to urgent care when the pt was sick. Pts mom picked the pt up at outpt.
--- NOTE | 2020-03-24 13:46 | DS ---
DATE OF DISCHARGE: 03/23/2020 ADMISSION DIAGNOSES: Pneumonia and rule out COVID-19. DISCHARGE DIAGNOSIS: Resolving pneumonia. HOSPITAL COURSE: The patient is a pleasant 19-year-old female who had some nausea, vomiting, diarrhea, but also was short of breath and fever, was coughing. We were concerned she could have COVID-19. She was admitted. We ruled out COVID-19, our testing was negative. We did consult Pulmonary. We treated with empiric IV antibiotics. There was some concern she could have had gastroenteritis as well. Basically yesterday, I saw her she was doing much better. She wanted to go home. We advanced her diet and discharge. DISPOSITION: Home. ACTIVITY: As tolerated. DIET: Low sodium. MEDICATIONS: Please see the MRAD. TOTAL TIME: 34 minutes. DOROTHY COLLIER DO DR: KIMBERLYN/roberto JOB#: [id number] / [id number]
== END 2020-03-23 13:00 | disposition home or self-care (01) | DRG 391 ==
LOC: ER 07:14 → 1 WEST ICU 11:40
PROVIDERS: ADMIT Internal Medicine; ATTEND Internal Medicine
DX: K52.9 Noninfective gastroenteritis and colitis, unspecified (principal); J18.9 Pneumonia, unspecified organism; J45.909 Unspecified asthma, uncomplicated; N60.01 Solitary cyst of right breast; Z20.828 Contact with and (suspected) exposure to other viral communicable diseases; Z82.49 Family history of ischemic heart disease and other diseases of the circulatory system; Z87.09 Personal history of other diseases of the respiratory system; Z88.2 Allergy status to sulfonamides
CPT/HCPCS: 36415; 71045; 74177; 80048; 80053; 81001; 81025; 82728; 83605; 83690; 84145; 84703; 85007; 85025; 85027; 85379; 86140; 87040; 87086; 96361; 96365; 96366; 96372; 96375; 96376; J0456; J0696; J0780; J1885; J2405; J3490; J7030; Q9967; 99285-25; G0378; U0003-CS

== ENCOUNTER 2020-08-27 11:11 | Observation (INO) | payer BC ==
[2020-08-27] MEDS: IV DEXTROSE 5%-LACT RINGERS 1,000 ML IV SCH ×2 (11:55→13:10)
[2020-08-27] MEDS ORDERED: IV RINGERS,LACTATED 1000ML 1,000 ML IV SCH (12:01)
[2020-08-27 12:23] LABS: BILIRUBIN,URINE NEGATIVE (NEG); CLARITY,URINE CLEAR; COLOR,URINE YELLOW; NITRITE,URINE NEGATIVE (NEG); PROTEIN,URINE 30 mg/dL (NEG-TRACE); UROBILINOGEN,URINE 0.2 mg/dL (0.2 mg/dL)
[2020-08-27 12:54] LABS: BACTERIA,URINE MODERATE /HPF (0-FEW); RBC,URINE 0 /HPF (0-2)
== END 2020-08-27 15:48 | disposition home or self-care (01) ==
LOC: 3 SO LND 11:11
PROVIDERS: ADMIT Obstetrics & Gynecology; ATTEND Obstetrics & Gynecology
DX: O21.2 Late vomiting of pregnancy (principal); O26.892 Other specified pregnancy related conditions, second trimester; R19.7 Diarrhea, unspecified; O36.8120 Decreased fetal movements, second trimester, not applicable or unspecified; Z3A.21 21 weeks gestation of pregnancy; Z79.899 Other long term (current) drug therapy
CPT/HCPCS: 59025; 81001; 87086; 96360; 96361; G0378; G0379; J7121

== ENCOUNTER 2021-05-22 12:35 | Emergency (ER) | payer BC, MEDICAID ==
[~2021-05-22 12:35] MED LIST changes: -CLIN150C14 PO; +CLIN150C15 PO
== END 2021-05-22 14:07 | disposition left against medical advice (07) ==
LOC: ER 12:35
DX: R05 Cough (principal); R06.02 Shortness of breath; Z53.21 Procedure and treatment not carried out due to patient leaving prior to being seen by health care provider

== ENCOUNTER 2021-09-08 15:12 | Emergency (ER) | payer BC, MEDICAID ==
[~2021-09-08] VITALS: Ht 162.6 cm; Wt 60.4 kg
[~2021-09-08 15:12] MED LIST changes: -CLIN150C15 PO; +CLIN150C16 PO
[2021-09-08 15:47] LABS: BILIRUBIN,URINE NEGATIVE (NEG); CLARITY,URINE CLEAR; COLOR,URINE YELLOW; NITRITE,URINE NEGATIVE (NEG); PROTEIN,URINE NEGATIVE (NEG-TRACE)
[2021-09-08 15:59] LABS: BACTERIA,URINE 0 /HPF (0-FEW); RBC,URINE 0 /HPF (0-2)
--- NOTE | 2021-09-08 16:08 | PHYS DOC ---
Past Medical History Past Medical History: Asthma Additional Past Medical Histor: reports concussion july 2019,PCOS Past Surgical History: No Surgical History Smoking Status: Never Smoker Alcohol Use: None Drug Use: None General Adult EDM: Chief Complaint: PAIN ON URINATION HPI: HPI: Is a 20-year-old female who presents to the emergency department for generalized abdominal pain, bilateral flank pain, dysuria, hematuria, urinary frequency and urgency, nausea that started 1 month ago. Patient rates her pain 8 out of 10. She states it is intermittent. No treatment prior to arrival. Patient reports that symptoms have been going on since she was diagnosed with a kidney infection last month. She reports that she got discharged home with antibiotics but did not finish it completely because she lost the medications. Patient has a history of PCOS and asthma. Her last menstrual period was August 09. She denies fevers. Review of Systems: Review of Systems: Constitutional: See HPI GI: See HPI : See HPI Musculoskeletal: See HPI Heart Score: C/O Chest Pain: No Risk Factors: Risk Factors: DM, Current or recent (<one month) smoker, HTN, HLP, family history of CAD, obesity. Risk Scores: Score 0 - 3: 2.5% MACE over next 6 weeks - Discharge Home Score 4 - 6: 20.3% MACE over next 6 weeks - Admit for Clinical Observation Score 7 - 10: 72.7% MACE over next 6 weeks - Early Invasive Strategies Allergies: Allergies: Allergies Coded Allergies Type Severity Reaction Last Updated Verified Sulfa (Sulfonamide Antibiotics) Allergy Intermediate Unknown 09/02/16 Yes Physical Exam: PE: Constitutional: Well developed, well nourished, no acute distress, non-toxic appearance. [] HENT: Normocephalic, atraumatic, bilateral external ears normal, oropharynx moist, no oral exudates, nose normal. [] Eyes: PERRLA, EOMI, conjunctiva normal, no discharge. [] Neck: Normal range of motion, no stridor Cardiovascular:Heart rate regular rhythm, no murmur [] Lungs & Thorax: Bilateral breath sounds clear to auscultation [] Abdomen: Bowel sounds normal, soft, no rigidity, no rebound tenderness, no guarding, generalized tenderness with abdominal palpation,, no masses, no pulsatile masses. [] Skin: Warm, dry, no erythema, no rash. [] Back: No tenderness, lateral CVA tenderness. [] Extremities: No tenderness, no cyanosis, no clubbing, ROM intact, no edema. [] Neurologic: Alert and oriented X 3, normal motor function, normal sensory function, no focal deficits noted. [] Psychologic: Affect normal, judgement normal, mood normal. [] Current Patient Data: Labs: Laboratory Tests Test 09/08/21 15:30 Urine Collection Type Unknown Urine Color Yellow Urine Clarity Clear Urine pH 7.0 (<5.0-8.0) Urine Specific [place] 1.020 (1.000-1.030) Urine Protein Negative mg/dL (NEG-TRACE) Urine Glucose (UA) Negative mg/dL (NEG) Urine Ketones (Stick) Negative mg/dL (NEG) Urine Blood Negative (NEG) Urine Nitrite Negative (NEG) Urine Bilirubin Negative (NEG) Urine Urobilinogen Dipstick 1.0 mg/dL (0.2 mg/dL) Urine Leukocyte Esterase Moderate (NEG) Urine RBC 0 /HPF (0-2) Urine WBC 1-4 /HPF (0-4) Urine Squamous Epithelial Cells Many /LPF Urine Bacteria 0 /HPF (0-FEW) Vital Signs: Vital Signs Date Time Temp Pulse Resp B/P (MAP) Pulse Ox O2 Delivery O2 Flow Rate FiO2 09/08/21 15:33 97.9 77 18 145/77 (99) 98 Room Air 97.9 EKG: EKG: [] Radiology/Procedures: Radiology/Procedures: []PROCEDURE: CT ABD PELV W/ IV CONTRST ONLY Exam: CT of abdomen and pelvis with contrast INDICATION: Generalized abdominal pain TECHNIQUE: Sequential axial images through the abdomen and pelvis obtained following the administration of 75 mL of Isovue-370 IV contrast. Sagittal and coronal reformatted images were reconstructed from the axial data and reviewed. Exposure: One or more of the following in the visualized dose reduction techniques were utilized for this examination: 1. Automated exposure control 2. Adjustment of the MA and/or KV according to patient size 3. Use of iterative of reconstructive technique Comparisons: 03/22/2020 FINDINGS: Heart size is normal. No pericardial effusion. Visualized lung bases are clear. No pleural effusion. Liver, spleen, pancreas, gallbladder and adrenals are unremarkable. Kidneys demonstrate symmetric enhancement. No perinephric inflammation or hydronephrosis. No renal or ureteral calculi are identified. Bladder is partially distended and appears thin-walled. Uterus is nonenlarged. No abnormal adnexal mass. Large and small bowel are unremarkable. Appendix is normal. No free intra- abdominal air or fluid. No obstruction. Abdominal aorta has normal course and caliber. Abdominal vasculature is patent. No enlarged intra-abdominal lymph nodes are identified. No suspicious osseous lesions or acute fractures. IMPRESSION: No acute process identified within the abdomen or pelvis. Electronically signed by: Kortney Craven MD (09/08/2021 5:58 PM) [facility] DICTATED and SIGNED BY: KORTNEY CRAVEN MD DATE: 09/08/21 [id number] 0 Course & Med Decision Making: Course & Med Decision Making Pertinent Labs and Imaging studies reviewed. (See chart for details) [] Patient presents to the emergency department for urinary frequency/urgency, hematuria, dysuria, nausea, generalized abdominal pain and flank pain. Patient reports that she was treated with an antibiotic for kidney infection 1 month ago when her symptoms started but she did not finish the antibiotic. Work-up in the ER consisted of urinalysis, this showed 1-4 white blood cells and mod leukocytes but there was no urine bacteria and there was squamous cells possible that this was contaminated. Blood work was obtained and a CT scan of patient's abdomen was performed. Patient was noted to have mild leukocytosis with a white blood cell count of twelve. Patient CT abdomen pelvis was negative for any acute findings. Patient be treated with an antibiotic to treat her urinary tract infection. Advised to increase fluids, avoid bladder irritants and follow-up with her doctor. I discussed with patient all findings and diagnostic testing as well as the need to follow-up with PCP for further evaluation and treatment or return to the ER if any new or worsening symptoms. Strict return precautions were also discussed at length. Patient voiced understanding and agreement with the plan. Patient is hemodynamically stable at the time of dis position. Dragon Disclaimer: Dragon Disclaimer: This electronic medical record was generated, in whole or in part, using a voice recognition dictation system. Departure Departure Impression: Primary Impression: Urinary tract infection Qualified Codes: N30.00 - Acute cystitis without hematuria Disposition: HOME / SELF CARE / HOMELESS Condition: GOOD Referrals: NO PCP (PCP) Patient Instructions: Urinary Tract Infection Additional Instructions: You were seen in the emergency department for abdominal pain. Your blood work and imaging was unremarkable. You were noted to have a mild urinary tract infection which will be treated with an antibiotic. Please start and finish the antibiotic completely. Increase your fluids. Avoid bladder irritants like caffeine, alcohol or sugary beverages. You can take Tylenol or ibuprofen for your pain at home. Follow-up with your primary care provider tomorrow regarding your ER visit. Return to the emergency department if you develop worsening of your abdominal pain or back pain, intractable nausea or vomiting, high fevers refractory to treatment, blood in your stools or vomit. Scripts Cephalexin (KEFLEX) 500 Mg Capsule 1 CAP PO BID for 7 Days, #14 CAP 0 Refills Prov: ESHA DIAL APRN 09/08/21 ESHA DIAL APRN Sep 08, 2021 16:07
[2021-09-08] MEDS ORDERED: IOHEXOL 300 MG/ML 100ML VIAL. IV ONE (16:30)
[2021-09-08] MEDS ORDERED: CONTRAST GIVEN. MC PRN (16:30)
[2021-09-08 16:47] LABS: BASO # 0.1 x10^3/uL (0.0-0.2); BASO % 1 % (0-3); EOS # 0.4 x10^3/uL (0.0-0.7); EOS % 3 % (0-3); HEMOGLOBIN 15.3 g/dL (12.0-15.5); LYMPH # 2.8 x10^3/uL (1.0-4.8); LYMPH % 22 % (24-48); MEAN CORPUSCULAR HEMOGLOBIN 30 pg (25-35); MEAN CORPUSCULAR HGB CONC 35 g/dL (31-37); MEAN CORPUSCULAR VOLUME 87 fL (79-100); MONO # 0.8 x10^3/uL (0.0-1.1); MONO % 6 % (0-9); NEUT # 8.5 x10^3/uL (1.8-7.7); NEUT % 68 % (31-73); PLATELET COUNT 281 x10^3/uL (140-400); RED BLOOD COUNT 5.05 x10^6/uL (3.50-5.40); RED CELL DISTRIBUTION WIDTH 13.9 % (11.5-14.5); WHITE BLOOD COUNT 12.6 x10^3/uL (4.0-11.0)
[2021-09-08 16:59] LABS: CALCIUM 8.2 mg/dL (8.5-10.1); CREATININE 0.6 mg/dL (0.6-1.0); GFR 127.5; POTASSIUM 3.8 mmol/L (3.5-5.1)
[2021-09-08 17:07] LABS: ALBUMIN 3.7 g/dL (3.4-5.0); ALBUMIN/GLOBULIN RATIO 1.1 (1.0-1.7); TOTAL BILIRUBIN 0.4 mg/dL (0.2-1.0)
--- NOTE | 2021-09-08 18:01 | RAD ---
Exam: CT of abdomen and pelvis with contrast INDICATION: Generalized abdominal pain TECHNIQUE: Sequential axial images through the abdomen and pelvis obtained following the administrati on of 75 mL of Isovue-370 IV contrast. Sagittal and coronal reformatted images were reconstructed fro m the axial data and reviewed. Exposure: One or more of the following in the visualized dose reduction techniques were utilized for this examination: 1. Automated exposure control 2. Adjustment of the MA and/or KV according to patient size 3. Use of iterative of reconstructive technique Comparisons: 03/22/2020 FINDINGS: Heart size is normal. No pericardial effusion. Visualized lung bases are clear. No pleural effusion. Liver, spleen, pancreas, gallbladder and adrenals are unremarkable. Kidneys demonstrate symmetric enhancement. No perinephric inflammation or hydronephrosis. No renal or ureteral calculi are identified. Bladder is partially distended and appears thin-walled. Uterus is nonenlarged. No abnormal adnexal ma ss. Large and small bowel are unremarkable. Appendix is normal. No free intra-abdominal air or fluid. No obstruction. Abdominal aorta has normal course and caliber. Abdominal vasculature is patent. No enlarged intra-abdominal lymph nodes are identified. No suspicious osseous lesions or acute fractures. IMPRESSION: No acute process identified within the abdomen or pelvis. Electronically signed by: Manuela Gonzalez MD (09/08/2021 5:58 PM) [facility]
[2021-09-08] MEDS ORDERED: CEPH500T PO (18:21)
[2021-09-08] MEDS ORDERED: CEPH500C PO (18:29)
[2021-09-08 18:51] VITALS: BP 118/66
== END 2021-09-08 18:53 | disposition home or self-care (01) ==
LOC: ER 15:12
DX: N30.00 Acute cystitis without hematuria (principal); J45.909 Unspecified asthma, uncomplicated; Z88.2 Allergy status to sulfonamides
CPT/HCPCS: 36415; 74177; 80053; 81001; 81025; 83690; 85025; 87086; 99285; Q9967